=== PATIENT | female | born 1935 | race Caucasian/White ===

== ENCOUNTER 2017-07-28 11:50 | Inpatient (IN) ==
[2017-07-28] MEDS ORDERED: 0.9 % Sodium Chloride 1,000 ML IVC ONE (12:16)
[2017-07-28 12:55] LABS: Basophils # 0.1 K/mcL (0.0-0.2); Basophils % 0.7 %; Eosinophils # 0.1 K/mcL (0.0-0.6); Eosinophils % 1.1 %; Hematocrit 34.4 % (35.3-44.9); Hemoglobin 11.6 g/dL (11.5-15.4); Immature Granulocytes % 1.7 % (0-4); Lymphocytes # 1.1 K/mcL (0.6-4.6); Lymphocytes % 12.6 %; Mean Corpuscular HGB Conc 33.7 g/dL (31.6-35.5); Mean Corpuscular Hemoglobin 31.6 pg (28.0-33.3); Mean Corpuscular Volume 93.7 fL (83.0-100.0); Mean Platelet Volume 8.6 fL (9.4-12.4); Monocytes # 0.6 K/mcL (0.0-1.3); Monocytes % 7.1 %; Neutrophils # 6.9 K/mcL (1.6-8.9); Platelet Count 291 K/mcL (140-400); Red Blood Count 3.67 M/mcL (3.82-4.97); Segmented Neutrophils % 76.8 %
[2017-07-28 13:01] LABS: INR 1.2; Prothrombin Time 12.5 Seconds (9.4-12.1)
[2017-07-28 13:04] LABS: Activated Partial Thrombo Time 21.7 Seconds (26.0-36.0)
[2017-07-28 13:09] LABS: Alanine Aminotransferase 38 Units/L (0-55); Albumin 2.7 g/dL (3.5-5.0); Albumin/Globulin Ratio 0.6 (1.1-2.2); Alkaline Phosphatase 111 Units/L (38-126); Aspartate Amino Transferase 25 Units/L (5-34); BUN/Creatinine Ratio 14 (6-26); Bilirubin,Direct 0.3 mg/dL (0.0-0.5); Bilirubin,Indirect 0.4 mg/dL (0.0-1.2); Bilirubin,Total 0.7 mg/dL (0.2-1.2); Blood Urea Nitrogen 10 mg/dL (7-20); Calcium 8.9 mg/dL (8.6-10.8); Carbon Dioxide 26 mEq/L (19-29); Chloride 104 mEq/L (98-109); Globulin 4.4 g/dL (2.4-3.5); Glucose 161 mg/dL (70-99); Magnesium 1.9 mg/dL (1.6-2.6); Osmolality,Calculated 293 (280-300); Phosphorous 1.8 mg/dL (2.3-4.7); Potassium 3.1 mEq/L (3.5-4.5); Sodium 140 mEq/L (136-145); Total Protein 7.1 g/dL (6.0-8.3); eGFR For African Americans > 60 (> 60); eGFR For Non-African Americans > 60 (> 60)
--- NOTE | 2017-07-28 13:24 | Emergency Department Note ---
Disposition Clinical Impression: Community acquired pneumonia Disposition: Admitted As Inpatient Condition: Fair Time of Disposition: 14:34 SOB HPI - General Chief Complaint: ED Shortness of Breath/Dyspnea Stated Complaint: JUVENTINO Time Seen by Provider: 07/28/17 12:01 Source: patient Mode of arrival: ambulatory Limitations: no limitations Nursing Notes Reviewed: Yes Vital Signs Reviewed: Yes - History of Present Illness 81-year-old female presented to the ED with shortness of breath. Patient is very hard of hearing. Patient only has hypertension as her medical problems and takes medications for that. Since she is still having a little bit of substernal chest pain but says it does not radiate. As the pain is a pressure and is a 2 out of 10. She has not taken anything for the pain. It mainly hurts if she takes a big deep breath. She was seen 1 week ago by her primary care physician started on amoxicillin/clavulanate which has not helped. She was diagnosed with bronchitis at that time. Patient 7 hard time breathing. Says she is getting yellow sputum production. Patient states she has not had a fever. She does not complain of any other abdominal pain, pain with urination, headache, blurry vision, neck pain, back pain, changes in bowel movements, or tingling of the arms or legs or any generalized numbness. She is not having any nausea or vomiting. No other complaints at this time. - Related Data Home Medications Medication Instructions Recorded Confirmed Amoxicillin/Clavulanate [Augmentin] 1 tab PO BID 07/28/17 07/28/17 Atenolol [Tenormin] 50 mg PO DAILY 07/28/17 07/28/17 Lipoflavonoid 1 tab PO TIDWM 07/28/17 07/28/17 Lovastatin [Mevacor] 20 mg PO DAILY 07/28/17 07/28/17 amLODIPine [Norvasc] 2.5 mg PO TID 07/28/17 07/28/17 Allergies Allergy/AdvReac Type Severity Reaction Status Date / Time No Known Allergies Allergy Verified 07/28/17 11:58 Review of Systems: 10 point review of systems done and negative unless otherwise stated in history of present illness. All systems ED: reviewed and negative except as stated. Review of Systems: As Per HPI Past Medical History - Past Medical History Attestation: Yes The following information was validated with the patient. Medical history: Reports: hyperlipidemia, hypertension - Social History Smoking Status: Never smoker Smokeless Tobacco Status: No Alcohol use: Reports: none Drug use: Reports: none Physical Exam - General Limitations: no limitations General appearance: alert, in no apparent distress - Head Head exam: atraumatic, normocephalic, normal inspection - Eye Eye exam: Present: normal appearance, PERRL, EOMI - ENT ENT exam: normal exam, normal oropharynx, mucous membranes moist - Neck Neck exam: Present: normal inspection, full ROM, trachea midline - Chest Chest inspection: Present: normal inspection, symmetric chest wall rise - Respiratory Respiratory exam: Absent: respiratory distress, wheezes, stridor, accessory muscle use - Expanded Respiratory Exam Location: rhonchi: Left, Right, Lower - Cardiovascular Cardiovascular exam: Present: regular rate, normal rhythm, normal heart sounds - Abdominal Exam Abdominal exam: Present: soft, Non-Tender, normal bowel sounds. Absent: tenderness, distention, guarding, rebound, rigidity - Extremities Exam Extremities exam: Present: normal inspection, full ROM. Absent: tenderness, pedal edema - Expanded Lower Extremity Exam Neurovascular/Tendon exam: Present: normal capillary refill. Absent: pulse deficit, motor deficit, sensory deficit, tendon deficit - Back Exam Back exam: Present: normal inspection, full ROM. Absent: tenderness, CVA tenderness (R), CVA tenderness (L) - Neurological Exam Neurological exam: Present: alert, oriented X3 - Skin Skin exam: Present: warm, dry, intact, normal color Course Course Narrative: 81-year-old female presents to the shortness of breath she is tachycardic here we took her regular as service criteria and blood culture as well as lactate CBC , CMP, lipase, urinalysis. Will get chest x-ray EKG and troponin. Will not start antibiotics at this time with her chest x-ray and other labs to come back. Patient took if this plan. We will also give 1 L fluid. Vital Signs Temperature 97.9 F 07/28/17 11:52 Pulse Rate 113 07/28/17 11:52 Respiratory Rate 18 07/28/17 11:52 Blood Pressure 104/64 07/28/17 11:52 O2 Sat by Pulse Oximetry 97 07/28/17 11:52 Temperature 98.4 F 07/28/17 16:23 Pulse Rate 94 07/28/17 16:23 Respiratory Rate 18 12/09/17 16:27 Blood Pressure 136/70 07/28/17 16:23 O2 Sat by Pulse Oximetry 98 07/28/17 16:27 Oxygen Delivery Oxygen Delivery Room Air Shortness of Breath/Dyspnea - MDM Narrative Medical decision making narrative: 81-year-old female presented to the ED with cough and sputum production. She was seen by her primary care doctor earlier this week and placed on med for possible pneumonia. Says she has been taking irregularly and symptoms of infection got worse. We did get basic labs which all came back normal. EKG and troponin were normal. Chest x-ray did show possible left-sided lower pneumonia. Due to her symptoms and failing outpatient treatment with Augmentin we felt that admission for community acquired pneumonia was needed. The patient she agreed with this plan. Patient was admitted to the hospitalist service and started on azithromycin as well as Rocephin. Lactate and blood cultures were ordered. Spoke with Dr. Alberto the hospitalist who agreed to admit the patient to their service. Patient is admitted in stable condition at this time. Chest X-Ray 07/28/17 12:19 IMPRESSION: Patchy opacity medially at the left lung base, which could represent a focal infiltrate. However, neoplasm is not excluded and further evaluation with radiographic follow-up until resolution versus chest CT is recommended. D/ : / 07/28/2017 13:29:06 Christiano Mullins MD / taylor Interpreting Provider: Christiano Mullins MD - Medical Records Medical records reviewed: Yes I reviewed the patient's medical records. - Lab Data Lab results reviewed: Yes I reviewed the patient's lab results. Result diagrams: 07/28/17 12:38 07/28/17 12:38 Lab Results 07/28/17 07/28/17 07/28/17 Range/Units 12:38 12:38 12:38 WBC 9.0 (4.3-11.1) K/mcL RBC 3.67 L (3.82-4.97) M/mcL Hgb 11.6 (11.5-15.4) g/dL Hct 34.4 L (35.3-44.9) % MCV 93.7 (83.0-100.0) fL MCH 31.6 (28.0-33.3) pg MCHC 33.7 (31.6-35.5) g/dL RDW 12.0 (11.5-14.5) % Plt Count 291 (140-400) K/mcL MPV 8.6 L (9.4-12.4) fL Immature Gran % 1.7 (0-4) % Seg Neutrophils % 76.8 % Lymphocytes % 12.6 % Monocytes % 7.1 % Eosinophils % 1.1 % Basophils % 0.7 % Neutrophils # 6.9 (1.6-8.9) K/mcL Lymphocytes # 1.1 (0.6-4.6) K/mcL Monocytes # 0.6 (0.0-1.3) K/mcL Eosinophils # 0.1 (0.0-0.6) K/mcL Basophils # 0.1 (0.0-0.2) K/mcL PT 12.5 H (9.4-12.1) Seconds INR 1.2 APTT 21.7 L (26.0-36.0) Seconds Sodium 140 (136-145) mEq/L Potassium 3.1 L (3.5-4.5) mEq/L Chloride 104 (98-109) mEq/L Carbon Dioxide 26 (19-29) mEq/L BUN 10 (7-20) mg/dL Creatinine 0.73 (0.57-1.11) mg/dL Est GFR ( Amer) > 60 (> 60) Est GFR (Non-Af Amer) > 60 (> 60) BUN/Creatinine Ratio 14 (6-26) Glucose 161 H (70-99) mg/dL Calculated Osmolality 293 (280-300) Lactic Acid (0.5-2.2) mmol/L Calcium 8.9 (8.6-10.8) mg/dL Phosphorus 1.8 L (2.3-4.7) mg/dL Magnesium 1.9 (1.6-2.6) mg/dL Total Bilirubin 0.7 (0.2-1.2) mg/dL Direct Bilirubin 0.3 (0.0-0.5) mg/dL Indirect Bilirubin 0.4 (0.0-1.2) mg/dL AST 25 (5-34) Units/L ALT 38 (0-55) Units/L Alkaline Phosphatase 111 (38-126) Units/L Troponin I (0-0.03) ng/mL Serum Total Protein 7.1 (6.0-8.3) g/dL Albumin 2.7 L (3.5-5.0) g/dL Globulin 4.4 H (2.4-3.5) g/dL Albumin/Globulin Ratio 0.6 L (1.1-2.2) Urine Color (Yellow) Urine Clarity (Clear) Urine pH (5.0-8.0) pH Units Ur Specific [place] (1.010-1.025) Urine Protein (Neg-Trace) mg/dL Urine Glucose (UA) (Normal) mg/dL Urine Ketones (Negative) mg/dL Urine Blood (Negative) Urine Nitrite (Negative) Urine Bilirubin (Negative) Urine Urobilinogen (Normal) mg/dL Ur Leukocyte Esterase (Negative) Ur Culture Indicated? (NO) 07/28/17 07/28/17 07/28/17 Range/Units 12:38 12:38 13:51 WBC (4.3-11.1) K/mcL RBC (3.82-4.97) M/mcL Hgb (11.5-15.4) g/dL Hct (35.3-44.9) % MCV (83.0-100.0) fL MCH (28.0-33.3) pg MCHC (31.6-35.5) g/dL RDW (11.5-14.5) % Plt Count (140-400) K/mcL MPV (9.4-12.4) fL Immature Gran % (0-4) % Seg Neutrophils % % Lymphocytes % % Monocytes % % Eosinophils % % Basophils % % Neutrophils # (1.6-8.9) K/mcL Lymphocytes # (0.6-4.6) K/mcL Monocytes # (0.0-1.3) K/mcL Eosinophils # (0.0-0.6) K/mcL Basophils # (0.0-0.2) K/mcL PT (9.4-12.1) Seconds INR APTT (26.0-36.0) Seconds Sodium (136-145) mEq/L Potassium (3.5-4.5) mEq/L Chloride (98-109) mEq/L Carbon Dioxide (19-29) mEq/L BUN (7-20) mg/dL Creatinine (0.57-1.11) mg/dL Est GFR ( Amer) (> 60) Est GFR (Non-Af Amer) (> 60) BUN/Creatinine Ratio (6-26) Glucose (70-99) mg/dL Calculated Osmolality (280-300) Lactic Acid 1.5 (0.5-2.2) mmol/L Calcium (8.6-10.8) mg/dL Phosphorus (2.3-4.7) mg/dL Magnesium (1.6-2.6) mg/dL Total Bilirubin (0.2-1.2) mg/dL Direct Bilirubin (0.0-0.5) mg/dL Indirect Bilirubin (0.0-1.2) mg/dL AST (5-34) Units/L ALT (0-55) Units/L Alkaline Phosphatase (38-126) Units/L Troponin I 0.00 (0-0.03) ng/mL Serum Total Protein (6.0-8.3) g/dL Albumin (3.5-5.0) g/dL Globulin (2.4-3.5) g/dL Albumin/Globulin Ratio (1.1-2.2) Urine Color Yellow (Yellow) Urine Clarity Clear (Clear) Urine pH 6.5 (5.0-8.0) pH Units Ur Specific [place] 1.016 (1.010-1.025) Urine Protein Negative (Neg-Trace) mg/dL Urine Glucose (UA) Normal (Normal) mg/dL Urine Ketones 15 H (Negative) mg/dL Urine Blood Negative (Negative) Urine Nitrite Negative (Negative) Urine Bilirubin Negative (Negative) Urine Urobilinogen Normal (Normal) mg/dL Ur Leukocyte Esterase Negative (Negative) Ur Culture Indicated? NO (NO) - Radiology Data Radiology results reviewed: Yes I reviewed the patient's radiology results. - EKG Data EKG attestation: Yes I reviewed and interpreted this EKG. EKG results narrative: EKG done 1157 review myself and the attending shows sinus tachycardia at a rate of 117, QRS 84, QTC 394 with a normal axis. No acute ST changes, no acute T- wave or maladies, no signs of any heart strain or hypertrophy, no signs of heart block, no signs of WPW/Brugada syndrome. This is an unchanged EKG when compared with the one done 11/28/14. Attestation Statement - Attestation Attestation: I, Maldonado Renteria, examined this patient and my medical decision-making was reviewed with the REORDERING CLERK/PA/Advanced Practice Nurse/Resident Physician. I agree with the documented findings, disposition and treatment plan as described except to the extent set forth below. 81-year-old female presents to the emergency department with concerns of difficulty in breathing and cough. Patient states her cough is productive of yellow sputum. She states she was evaluated by her primary care provider who prescribed her Augmentin for treatment of a possible pneumonia. Patient states she has become increasingly weak and fatigued. Chest x-ray shows acute infiltrate. She was started on community acquired antibiotics and admitted to the hospital for continuation of her care. She was given IV fluids for her tachycardia.
[2017-07-28] MEDS ORDERED: cefTRIAXone 1,000 MG in Water for inj. (sterile) 10 ML IVP ONE (13:46)
[2017-07-28] MEDS ORDERED: Azithromycin 500 MG in D5% in Water 250 ML IVPB ONE (13:46)
[2017-07-28 13:57] LABS: Bilirubin,Urine Negative (Negative); Blood,Urine Negative (Negative); Clarity,Urine Clear (Clear); Color,Urine Yellow (Yellow); Glucose,Urine (UA) Normal (Normal); Ketones,Urine 15 mg/dL (Negative); Leukocyte Esterase,Urine Negative (Negative); Nitrite,Urine Negative (Negative); PH,Urine 6.5 pH Units (5.0-8.0); Protein,Urine Negative (Neg-Trace); Specific Gravity,Urine 1.016 (1.010-1.025); Urobilinogen,Urine Normal (Normal)
[2017-07-28] MEDS ORDERED: Naloxone 0.4 MG/ML INJ IVP PRN (14:27)
[2017-07-28] MEDS ORDERED: Acetaminophen 325 MG TABLET PO PRN (14:27)
[2017-07-28] MEDS ORDERED: Ondansetron 4 MG/2 ML VIAL IVP PRN (14:27)
--- NOTE | 2017-07-28 14:46 | Internal Med History&Physical ---
Date of Encounter: 07/28/17 Time of Encounter: 14:30 Assessment and Plan (1) Community acquired pneumonia Current visit: Yes Status: Acute The patient will be admitted and be started on IV ceftriaxone and Zithromax. She has already received a dose of each in the emergency department. I will follow-up on the blood cultures I have ordered sputum culture as well as urine strep and Legionella. We will check her for fluids well. We will continue with nebulizer treatment and oxygenas needed. She is currently satting well on room air. Qualifiers: Laterality: left Lung location: unspecified part of lung Qualified Code(s ): J18.9 - Pneumonia, unspecified organism (2) Hypertension Current visit: Yes Status: Acute The patient's blood pressures on the lower side I will be holding her atenolol and Norvasc today. We will resume those as the blood pressure tolerates tomorrow. She is on IV fluids. Qualifiers: Hypertension type: essential hypertension Qualified Code(s): I10 - Essential (primary) hypertension (3) Hyperlipidemia Current visit: Yes Status: Acute Continue with her statin Qualifiers: Hyperlipidemia type: pure hypercholesterolemia Qualified Code(s): E78.00 - Pure hypercholesterolemia, unspecified; E78.0 - Pure hypercholesterolemia (4) DVT prophylaxis Current visit: Yes Status: Acute Heparin subcutaneous Internal Medicine - H&P: HPI Chief complaint: Shortness of breath History of present illness: Ms. Beach is a 81 year old female who has a past medical history of hypertension hyperlipidemia who presents to us with shortness of breath is has been going on for a week or so. Apparently the patient saw her primary care physician and was put on oral antibiotics. She was prescribed Augmentin at the time however she continued to be short of breath. She has had subjective fever but never really measured a temperature. She has had chills and sweats. Denies nausea vomiting. She has had some mild chest pain with no radiation. She has had a cough that was productive of yellowish sputum. She denies any headache. blurred vision, nausea, vomiting, abdominal pain, urinary or neurological symptoms. When she presented to the emergency department she was noted to have a blood pressure that was in the low 100s systolically. She has received IV fluid prior to me admitting her. She underwent workup that showed that she had infiltrates on her left side of her lungs. Her laboratory workup was remarkable for only a low potassium of 3.1 her electrolytes and kidney function was normal. She had white count was only 9. Her urinalysis was unremarkable. She had an EKG which showed no acute findings of ST or T-wave abnormalities. The patient is being admitted under the hospitalist service for failed outpatient treatment of community acquired pneumonia. Past Med Surg Social Fam HX - Past Medical History Medical history: hyperlipidemia, hypertension - Social History Smoking Status: Never smoker Smokeless Tobacco Status: No Alcohol use: none Drug use: none Internal Medicine - H&P: Meds Amoxicillin/Clavulanate [Augmentin] 1 tab PO BID 07/28/17 [History] Atenolol [Tenormin] 50 mg PO DAILY 07/28/17 [History] Lipoflavonoid 1 tab PO DAILY 07/28/17 [History] Lovastatin [Mevacor] 20 mg PO DAILY 07/28/17 [History] amLODIPine [Norvasc] 2.5 mg PO DAILY 07/28/17 [History] 3 Allergy/AdvReac Type Severity Reaction Status Date / Time No Known Allergies Allergy Verified 07/28/17 11:58 All Systems PM: A 10-system review of systems was performed and is negative for pertinent findings except as documented above in the HPI. Review of systems: All systems reviewed are negative except for what is mentioned above - Constitutional Vitals: Temp Pulse Resp BP Pulse Ox 97.9 F 113 18 104/64 97 07/28/17 11:52 07/28/17 11:52 07/28/17 11:52 07/28/17 11:52 07/28/17 11:52 Exam: GEN: NAD HEENT: AT, NC, No cyanosis, oral mucosa is moist, No JVD Lymphatics: No lymphadenoapthy Eyes: Extrocular muscles intact, anicteric CVS:RRR. S1, S2, No m/r/g RESP: diminished. Coarse on the left base. No wheezes ABD: Soft, NT, ND, +BS EXT: No edema, No rashes, 2+ DP NEURO: Nonfocal, CN II-XII intact, No focal motor or sensory deficits Psych: Cooperative, Not anxious or depressed Internal Med - H&P Results - Labs CBC & Chem 7: 07/28/17 12:38 07/28/17 12:38
[2017-07-28] MEDS: 0.9 % Sodium Chloride 1,000 ML IVC SCH (15:30)
[2017-07-28] MEDS: Ipratropium/Albuterol Neb 3 ML IH SCH ×2 (16:26→22:41)
[2017-07-28] MEDS: *HR* Heparin 5,000 UNIT/ML VIAL SQ SCH (16:37)
[2017-07-28] MEDS: LIPOFLAVONOID PO SCH (16:37)
[2017-07-28 18:22] LABS: 2009 H1N1 PCR NOT DETECTED (Not Detect); Influenza A PCR Negative (Negative); Influenza B PCR Negative (Negative)
[2017-07-29] MEDS ORDERED: Melatonin 3 MG TABLET PO ONE (01:06)
[2017-07-29] MEDS: *HR* Heparin 5,000 UNIT/ML VIAL SQ SCH ×4 (01:14→23:59)
[2017-07-29] MEDS: 0.9 % Sodium Chloride 1,000 ML IVC SCH (02:00)
[2017-07-29] MEDS: Ipratropium/Albuterol Neb 3 ML IH SCH ×4 (04:02→22:36)
[2017-07-29 06:40] LABS: BUN/Creatinine Ratio 9 (6-26); Blood Urea Nitrogen 5 mg/dL (7-20); Calcium 7.8 mg/dL (8.6-10.8); Carbon Dioxide 24 mEq/L (19-29); Chloride 110 mEq/L (98-109); Glucose 113 mg/dL (70-99); Magnesium 1.5 mg/dL (1.6-2.6); Osmolality,Calculated 290 (280-300); Sodium 141 mEq/L (136-145); eGFR For African Americans > 60 (> 60); eGFR For Non-African Americans > 60 (> 60)
[2017-07-29 06:59] LABS: Basophils % 0.5 %; Eosinophils # 0.1 K/mcL (0.0-0.6); Eosinophils % 1.8 %; Hematocrit 28.2 % (35.3-44.9); Immature Granulocytes % 1.9 % (0-4); Lymphocytes # 1.7 K/mcL (0.6-4.6); Lymphocytes % 22.2 %; Mean Corpuscular HGB Conc 34.8 g/dL (31.6-35.5); Mean Corpuscular Hemoglobin 32.2 pg (28.0-33.3); Mean Corpuscular Volume 92.8 fL (83.0-100.0); Mean Platelet Volume 8.7 fL (9.4-12.4); Monocytes # 0.6 K/mcL (0.0-1.3); Monocytes % 7.9 %; Neutrophils # 5.1 K/mcL (1.6-8.9); Platelet Count 252 K/mcL (140-400); Red Blood Count 3.04 M/mcL (3.82-4.97); Red Cell Distribution Width 12.1 % (11.5-14.5); Segmented Neutrophils % 65.7 %
[2017-07-29 07:00] LABS: Hemoglobin 9.8 g/dL (11.5-15.4)
[2017-07-29] MEDS ORDERED: GuaiFENesin/Codeine Oral Soln 5 ML UDC PO PRN (07:26)
[2017-07-29] MEDS: LIPOFLAVONOID PO SCH ×3 (08:13→17:32)
[2017-07-29] MEDS ORDERED: amLODIPine 5 MG TABLET PO SCH (09:00)
--- NOTE | 2017-07-29 10:19 | Internal Med Progress Note ---
Date of Encounter: 07/29/17 Time of Encounter: 07:15 - Assessment and plan (1) Community acquired pneumonia Current Visit: Yes Status: Acute Assessment and plan: The patient will be maintained on IV ceftriaxone and Zithromax. Her cultures have remained negative. Urine strep and Legionella been negative. She will probably benefit from one more day of IV antibiotics and possibly discharge in the morning. Will add symptomatic treatment to her coughing Qualifiers: Laterality: left Lung location: unspecified part of lung Qualified Code(s ): J18.9 - Pneumonia, unspecified organism (2) Hypertension Current Visit: Yes Status: Acute Assessment and plan: The patient blood pressure seems to be stable at this time. I will stop her IV fluid. Depending on her blood pressurethen may have to resume her blood pressure medication as those were held due to hypotension. Qualifiers: Hypertension type: essential hypertension Qualified Code(s): I10 - Essential (primary) hypertension (3) Hyperlipidemia Current Visit: Yes Status: Acute Assessment and plan: Continue statin Qualifiers: Hyperlipidemia type: pure hypercholesterolemia Qualified Code(s): E78.00 - Pure hypercholesterolemia, unspecified; E78.0 - Pure hypercholesterolemia (4) Hypokalemia Current Visit: Yes Status: Acute Assessment and plan: We will give 40 IV and 40 oral potassium and will check labs in the morning (5) DVT prophylaxis Current Visit: Yes Status: Acute Assessment and plan: Heparin subcutaneous - Subjective Interval history: No acute events. The patient continues to be on IV antibiotics for community acquired pneumonia. She says her cough still an issue. She has not really seem so much improvement yet. She has been afebrile. - Constitutional Vitals: Temp Pulse Resp BP Pulse Ox 98.5 F 97 15 145/70 94 07/29/17 09:52 07/29/17 09:52 07/29/17 09:52 07/29/17 09:52 07/29/17 09:52 Exam: GEN: NAD CVS:RRR. S1, S2, No m/r/g RESP: diminished. Coarse on the left base. No wheezes ABD: Soft, NT, ND, +BS EXT: No edema, No rashes, 2+ DP NEURO: Nonfocal, CN II-XII intact, No focal motor or sensory deficits Internal Medicine: Result - Labs CBC & Chem 7: 07/29/17 06:16 07/29/17 06:16 Labs: Short CBC 07/29/17 Range/Units 06:16 WBC 7.7 (4.3-11.1) K/mcL Hgb 9.8 L D (11.5-15.4) g/dL Hct 28.2 L (35.3-44.9) % Plt Count 252 (140-400) K/mcL Neutrophils # 5.1 (1.6-8.9) K/mcL BMP 07/29/17 06:16 Sodium 141 Potassium 3.0 L Chloride 110 H Carbon Dioxide 24 BUN 5 L Creatinine 0.57 Glucose 113 H Calcium 7.8 L - ABG Interpretation ABG results: PT/INR, D-dimer PT 12.5 Seconds (9.4-12.1) H 07/28/17 12:38 Consult Discharge Plan - Plan Referrals: Adriel Skinner DO [Primary Care Provider] -
[2017-07-29] MEDS ORDERED: Azithromycin 500 MG in D5% in Water 250 ML IVPB SCH (12:00)
[2017-07-29] MEDS: cefTRIAXone 1,000 MG in Water for inj. (sterile) 10 ML IVP SCH (12:20)
[2017-07-29] MEDS ORDERED: 0.9 % Sodium Chloride 250 ML ONE (15:11)
[2017-07-29] MEDS ORDERED: 0.9 % Sodium Chloride 500 ML ONE (20:21)
[2017-07-30 03:17] LABS: Basophils # 0.1 K/mcL (0.0-0.2); Basophils % 0.7 %; Eosinophils # 0.2 K/mcL (0.0-0.6); Eosinophils % 2.4 %; Hematocrit 31.8 % (35.3-44.9); Hemoglobin 10.5 g/dL (11.5-15.4); Immature Granulocytes % 2.2 % (0-4); Lymphocytes % 23.9 %; Mean Corpuscular Hemoglobin 31.2 pg (28.0-33.3); Mean Corpuscular Volume 94.4 fL (83.0-100.0); Mean Platelet Volume 8.9 fL (9.4-12.4); Monocytes # 0.7 K/mcL (0.0-1.3); Neutrophils # 5.2 K/mcL (1.6-8.9); Platelet Count 304 K/mcL (140-400); Red Blood Count 3.37 M/mcL (3.82-4.97); Red Cell Distribution Width 12.4 % (11.5-14.5); Segmented Neutrophils % 62.8 %
[2017-07-30 03:32] LABS: BUN/Creatinine Ratio 13 (6-26); Blood Urea Nitrogen 9 mg/dL (7-20); Calcium 8.7 mg/dL (8.6-10.8); Carbon Dioxide 23 mEq/L (19-29); Chloride 109 mEq/L (98-109); Glucose 132 mg/dL (70-99); Osmolality,Calculated 295 (280-300); Sodium 142 mEq/L (136-145); eGFR For African Americans > 60 (> 60); eGFR For Non-African Americans > 60 (> 60)
[2017-07-30 03:36] LABS: Potassium 4.1 mEq/L (3.5-4.5)
[2017-07-30] MEDS: Ipratropium/Albuterol Neb 3 ML IH SCH ×2 (05:07→10:10)
[2017-07-30 07:47] VITALS: BP 130/69
[2017-07-30] MEDS: LIPOFLAVONOID PO SCH (09:01)
[2017-07-30] MEDS: *HR* Heparin 5,000 UNIT/ML VIAL SQ SCH (09:01)
--- NOTE | 2017-07-30 09:26 | Discharge Summary ---
Date of Encounter: 07/30/17 Time of Encounter: 09:25 - Discharge Diagnosis (1) Community acquired pneumonia Priority: Primary Status: Acute Qualifiers: Laterality: left Lung location: unspecified part of lung Qualified Code(s ): J18.9 - Pneumonia, unspecified organism (2) Hypertension Priority: Secondary Status: Acute Qualifiers: Hypertension type: essential hypertension Qualified Code(s): I10 - Essential (primary) hypertension (3) Hyperlipidemia Priority: Secondary Status: Acute Qualifiers: Hyperlipidemia type: pure hypercholesterolemia Qualified Code(s): E78.00 - Pure hypercholesterolemia, unspecified; E78.0 - Pure hypercholesterolemia (4) Hypokalemia Priority: Primary Status: Acute - Discharge Medications Prescriptions: GuaiFENesin/Codeine [ROBITUSSIN w/CODEINE] 5 ml PO Q6HR PRN #10 udc PRN Reason: Cough levoFLOXacin [Levaquin] 500 mg PO DAILY #5 tablet Home Medications: Amoxicillin/Clavulanate [Augmentin] 1 tab PO BID 07/28/17 [History] Atenolol [Tenormin] 50 mg PO DAILY 07/28/17 [History] Lipoflavonoid 1 tab PO TIDWM 07/28/17 [History] Lovastatin [Mevacor] 20 mg PO DAILY 07/28/17 [History] amLODIPine [Norvasc] 2.5 mg PO TID 07/28/17 [History] GuaiFENesin/Codeine [ROBITUSSIN w/CODEINE] 5 ml PO Q6HR PRN #10 udc 07/30/17 [Rx ] levoFLOXacin [Levaquin] 500 mg PO DAILY #5 tablet 07/30/17 [Rx] Allergies/Adverse Reactions: 3 Allergy/AdvReac Type Severity Reaction Status Date / Time No Known Allergies Allergy Verified 07/28/17 11:58 Date of admission: 07/28/17 14:30 Primary care physician: Adriel Skinner, Consults: 07/28/17 15:43 Consult to Nutrition [CONS] Routine Comment: Consulting Provider: NUTRITION Reason for Dietary Consult: MST Score 07/30/17 09:22 Consult to Physical Therapy [CONS] Routine Comment: Evaluate, develop and implement POC Reason for Consult: PT eval - Patient Status Disposition: Home, Self-Care Overall status at discharge: patient is back to baseline - Discharge Instructions Instructions: Pneumonia (DC) Follow Up With: Adriel Skinner DO [Primary Care Provider] - 08/06/17 1:15 pm (Please follow up as schedule..) - Diet and Activity Activity: resume usual activities as tolerated Diet: regular diet Hospital course: Ms. Beach is a 81 year old female who has a past medical history of hypertension hyperlipidemia who presented to us with shortness of breath that has been going on for a week or so. Apparently the patient saw her primary care physician and was put on oral antibiotics. She was prescribed Augmentin at the time however she continued to be short of breath. She has had subjective fever but never really measured a temperature. She has had chills and sweats. When she presented to the emergency department she was noted to have a blood pressure that was in the low 100s systolically. She has received IV fluid prior to me admitting her. She underwent workup that showed that she had infiltrates on her left side of her lungs. Her laboratory workup was remarkable for only a low potassium of 3.1 her electrolytes and kidney function was normal. She had white count was only 9. Her urinalysis was unremarkable. She had an EKG which showed no acute findings of ST or T-wave abnormalities. The patient was admitted under the hospitalist service for failed outpatient treatment of community acquired pneumonia. She was maintained on IV Levaquin. She did well over the next couple of days. We ended up discharging the patient after hydration and IV antibiotics. She was discharged on oral Levaquin. She will need follow-up with her primary care physician. - Time Spent with Patient Total time spent providing and/or coordinating discharge services: - Constitutional Vitals: Temp Pulse Resp BP Pulse Ox 98.5 F 95 16 130/69 96 07/30/17 07:44 07/30/17 07:44 07/30/17 07:44 07/30/17 07:44 07/30/17 07:44 Exam: GEN: NAD CVS: RRR. S1, S2, No m/r/g RESP: CTAB ABD: Soft, NT, ND, +BS EXT: No edema. 2+ DP, No rashes NEURO: Nonfocal
[2017-07-30] MEDS ORDERED: LIPOFLAVONOID PO SCH (12:00)
[2017-07-30] MEDS ORDERED: Azithromycin 250 MG TABLET PO SCH (12:00)
[2017-07-30] MEDS: cefTRIAXone 1,000 MG in Water for inj. (sterile) 10 ML IVP SCH (12:36)
--- NOTE | 2017-07-30 14:46 | Electrocardiograph Report ---
[place] [id number] Test Date: 2017-07-28 Pat Name: Mariaelena Beach Department: 102 Room: [facility] Gender: F [employer] Manager: : [id number] Requested By: Edward Arcos Order Number: [id number] Reading MD: Maldonado Goldstein Measurements Intervals Excel Rate: 117 P: [place]: 0 QRS: 11 QRSD: 84 T: 47 QT: 325 QTc: 394 Interpretive Statements SINUS TACHYCARDIA ABNORMAL RHYTHM ECG Electronically Signed On 07-30-2017 14:44:29 EST by Maldonado Goldstein
== END 2017-07-30 13:54 | disposition home or self-care (01) | DRG 195 ==
LOC: 2ANU 11:50 → EMEROO 11:50 → SUATTDRO 14:30 → 2ANU 15:16
PROVIDERS: ADMIT Hospitalist; ATTEND Internal Medicine

== ENCOUNTER 2018-04-16 16:33 | Observation (INO) ==
[2018-04-16 17:08] LABS: Hematocrit 37.7 % (35.3-44.9)
--- NOTE | 2018-04-16 17:31 | Emergency Department Note ---
Disposition Clinical Impression: Syncope Qualifiers: Syncope type: unspecified Qualified Code(s): R55 - Syncope and collapse Disposition: Admitted As Inpatient Condition: Good Instructions: Syncope (ED) Referrals: Jim Barcenas MD [Primary Care Provider] - Forms: ED Satisfaction Letter Time of Disposition: 17:46 General Adult HPI - General Chief complaint: ED Altered Mental Status Stated complaint: Syncope Time Seen by Provider: 04/16/18 16:43 Source: patient, EMS Mode of arrival: EMS Limitations: no limitations Nursing Notes Reviewed: Yes Vital Signs Reviewed: Yes - History of Present Illness HPI Narrative: Patient is an 82-year-old female that presents emergency department after a syncopal episode. Patient states that this morning after taking her tramadol started feeling funny and kind of dizzy. Patient told her mercantile agent that she would like to go on a walk so they went to the park. Seed Laboratory Assistant states that she got hot and then felt lightheaded and dizzy and then passed out. Caregiver says that she did not fall she caught her prior to falling or having any injury. States that she then got up and sat down on the bench and she got lightheaded again and leaned against the caregiver. Patient's caregiver then called EMS and the patient was transported to the ER. Family denies any history of syncopal episodes in the past. Patient denies any injuries. Patient states that she is feeling better she is back at her baseline area and family in the room agrees that the patient is acting normally and like her usual self. Pain Scale: 0 - Related Data Home Medications Medication Instructions Recorded Confirmed Amoxicillin/Clavulanate [Augmentin] 1 tab PO BID 07/28/17 07/28/17 Atenolol [Tenormin] 50 mg PO DAILY 07/28/17 07/28/17 Lipoflavonoid 1 tab PO TIDWM 07/28/17 07/28/17 Lovastatin [Mevacor] 20 mg PO DAILY 07/28/17 07/28/17 amLODIPine [Norvasc] 2.5 mg PO TID 07/28/17 07/28/17 Atenolol 12/28/17 Previous Rx's Medication Instructions Recorded GuaiFENesin/Codeine [ROBITUSSIN 5 ml PO Q6HR PRN #10 udc 07/30/17 w/CODEINE] levoFLOXacin [Levaquin] 500 mg PO DAILY #5 tablet 07/30/17 Albuterol Sulfate [Albuterol 2 puff IH QID #1 inhaler 12/28/17 Inhaler] Benzonatate [Tessalon] 200 mg PO TID PRN #20 capsule 12/28/17 Doxycycline 100 mg PO BID #14 capsule 12/28/17 predniSONE [PredniSONE] 20 mg PO BID #10 tablet 12/28/17 Allergies Allergy/AdvReac Type Severity Reaction Status Date / Time No Known Allergies Allergy Verified 07/28/17 11:58 All systems ED: reviewed and negative except as stated. Cardiovascular: Denies: chest pain Respiratory: Denies: dyspnea Gastrointestinal: Denies: abdominal pain, nausea, vomiting Past Medical History - Past Medical History Medical history: Reports: asthma, hyperlipidemia, hypertension Psychiatric history: Reports: no psych history - Social History Smoking Status: Current every day smoker Smokeless Tobacco Status: No Alcohol use: Reports: none Drug use: Reports: none Physical Exam - General Limitations: no limitations General appearance: alert, in no apparent distress - Head Head exam: atraumatic, normocephalic - Eye Eye exam: Present: normal appearance, EOMI - Neck Neck exam: Present: normal inspection, full ROM, trachea midline - Respiratory Respiratory exam: Present: normal lung sounds bilaterally. Absent: respiratory distress, wheezes - Cardiovascular Cardiovascular exam: Present: normal rhythm, bradycardia, normal heart sounds, + S1, +S2 - Abdominal Exam Abdominal exam: Present: soft, Non-Tender, normal bowel sounds - Neurological Exam Neurological exam: Present: alert, oriented X3 - Expanded Neurological Exam Patient oriented to: Present: person, place, time Speech: Present: fluid speech Cranial nerves: EOM function (II, III, IV, ): Normal, facial sensation (V): Normal, facial palsy (VII): Normal, gag reflex (IX): Normal, spinal accessory function (XI): Normal, tongue deviation (XII): Normal Cerebellar function: finger to nose: Normal, heel to galaviz: Normal Motor strength - LUE: 5/5 Motor strength - RUE: 5/5 Motor strength - LLE: 5/5 Motor strength - RLE: 5/5 Upper motor neuron exam: pronator drift: Absent bilaterally Sensory exam upper extremity: light touch: Normal Sensory exam lower extremity: light touch: Normal Coma Scale Eye Opening: Spontaneous Coma Scale Motor Response: Obeys Commands Coma Scale Verbal Response: Oriented Coma Scale Total: 15 - Psychiatric Psychiatric exam: Present: normal affect, normal mood - Skin Skin exam: Present: warm, dry, intact Course Vital Signs Temperature 97.6 F 04/16/18 16:36 Pulse Rate 55 04/16/18 16:36 Respiratory Rate 20 04/16/18 16:36 Blood Pressure 163/77 04/16/18 16:36 O2 Sat by Pulse Oximetry 99 04/16/18 16:36 Temperature 97.6 F 04/16/18 16:36 Pulse Rate 55 04/16/18 16:36 Respiratory Rate 20 04/16/18 16:36 Blood Pressure 163/77 04/16/18 16:36 O2 Sat by Pulse Oximetry 99 04/16/18 16:36 Oxygen Delivery Oxygen Delivery Room Air Medical Decision Making - MDM Narrative Medical decision making narrative: Due the patient is not emergency department with a syncopal episode we will check basic laboratory testing including a hemoglobin, BMP, glucose and EKG. Patient's glucose is 155. The remainder of her laboratory testing was unremarkable. Patient was not anemic or did not have any left-sided abnormalities. EKG was nonischemic. Patient's EKG was mildly bradycardic at 58. Due to the patient having an unexplained syncopal episode and the patient being 82 years old and feel that it is important that the patient be admitted to the hospital for further evaluation and management. - Lab Data Lab results reviewed: Yes I reviewed the patient's lab results. Result diagrams: 04/16/18 16:42 04/16/18 16:42 Lab Results 04/16/18 04/16/18 Range/Units 16:42 16:42 Hgb 13.0 (11.5-15.4) g/dL Hct 37.7 (35.3-44.9) % Sodium 139 (136-145) mEq/L Potassium 3.7 (3.5-5.1) mEq/L Chloride 104 (98-107) mEq/L Carbon Dioxide 28 (23-29) mEq/L BUN 15 (8-23) mg/dL Creatinine 0.70 (0.60-1.20) mg/dL Est GFR ( Amer) > 60 (> 60) Est GFR (Non-Af Amer) > 60 (> 60) BUN/Creatinine Ratio 21 (6-26) Glucose 155 H (70-105) mg/dL Calculated Osmolality 292 (280-300) Calcium 9.4 (8.6-10.3) mg/dL
[2018-04-16 17:32] LABS: BUN/Creatinine Ratio 21 (6-26); Blood Urea Nitrogen 15 mg/dL (8-23); Calcium 9.4 mg/dL (8.6-10.3); Carbon Dioxide 28 mEq/L (23-29); Chloride 104 mEq/L (98-107); Glucose 155 mg/dL (70-105); Osmolality,Calculated 292 (280-300); Potassium 3.7 mEq/L (3.5-5.1); Sodium 139 mEq/L (136-145); eGFR For Non-African Americans > 60 (> 60)
--- NOTE | 2018-04-16 17:52 | Emergency Department Note ---
Disposition Clinical Impression: Syncope Qualifiers: Syncope type: unspecified Qualified Code(s): R55 - Syncope and collapse Disposition: Admitted As Inpatient Condition: Good Instructions: Syncope (ED) Forms: ED Satisfaction Letter General Adult HPI - General Chief complaint: ED Altered Mental Status Stated complaint: Syncope Time Seen by Provider: 04/16/18 16:43 Source: patient, EMS Mode of arrival: EMS Limitations: no limitations - History of Present Illness Pain Scale: 0 - Related Data Home Medications Medication Instructions Recorded Confirmed Amoxicillin/Clavulanate [Augmentin] 1 tab PO BID 07/28/17 07/28/17 Atenolol [Tenormin] 50 mg PO DAILY 07/28/17 07/28/17 Lipoflavonoid 1 tab PO TIDWM 07/28/17 07/28/17 Lovastatin [Mevacor] 20 mg PO DAILY 07/28/17 07/28/17 amLODIPine [Norvasc] 2.5 mg PO TID 07/28/17 07/28/17 Atenolol 12/28/17 Previous Rx's Medication Instructions Recorded GuaiFENesin/Codeine [ROBITUSSIN 5 ml PO Q6HR PRN #10 udc 07/30/17 w/CODEINE] levoFLOXacin [Levaquin] 500 mg PO DAILY #5 tablet 07/30/17 Albuterol Sulfate [Albuterol 2 puff IH QID #1 inhaler 12/28/17 Inhaler] Benzonatate [Tessalon] 200 mg PO TID PRN #20 capsule 12/28/17 Doxycycline 100 mg PO BID #14 capsule 12/28/17 predniSONE [PredniSONE] 20 mg PO BID #10 tablet 12/28/17 Allergies Allergy/AdvReac Type Severity Reaction Status Date / Time No Known Allergies Allergy Verified 07/28/17 11:58 Past Medical History - Past Medical History Medical history: Reports: asthma, hyperlipidemia, hypertension Psychiatric history: Reports: no psych history - Social History Smoking Status: Current every day smoker Smokeless Tobacco Status: No Alcohol use: Reports: none Drug use: Reports: none Physical Exam - General Limitations: no limitations General appearance: alert, in no apparent distress Course Vital Signs Temperature 97.6 F 04/16/18 16:36 Pulse Rate 55 04/16/18 16:36 Respiratory Rate 20 04/16/18 16:36 Blood Pressure 163/77 04/16/18 16:36 O2 Sat by Pulse Oximetry 99 04/16/18 16:36 Temperature 97.6 F 04/16/18 16:36 Pulse Rate 55 04/16/18 16:36 Respiratory Rate 20 04/16/18 16:36 Blood Pressure 163/77 04/16/18 16:36 O2 Sat by Pulse Oximetry 99 04/16/18 16:36 Oxygen Delivery Oxygen Delivery Room Air Medical Decision Making - Lab Data Result diagrams: 04/16/18 16:42 04/16/18 16:42 Lab Results 04/16/18 04/16/18 Range/Units 16:42 16:42 Hgb 13.0 (11.5-15.4) g/dL Hct 37.7 (35.3-44.9) % Sodium 139 (136-145) mEq/L Potassium 3.7 (3.5-5.1) mEq/L Chloride 104 (98-107) mEq/L Carbon Dioxide 28 (23-29) mEq/L BUN 15 (8-23) mg/dL Creatinine 0.70 (0.60-1.20) mg/dL Est GFR ( Amer) > 60 (> 60) Est GFR (Non-Af Amer) > 60 (> 60) BUN/Creatinine Ratio 21 (6-26) Glucose 155 H (70-105) mg/dL Calculated Osmolality 292 (280-300) Calcium 9.4 (8.6-10.3) mg/dL Attestation Statement - Attestation Attestation: I examined this patient and my medical decision-making was reviewed with the Resident Physician. I agree with the documented findings, disposition and treatment plan as described except to the extent set forth below. 82-year-old patient with a syncopal episode. No ischemia or conduction abnormalities on her EKG. Initial lab work is normal. She is return to baseline. No neurologic symptoms. Has been in normal sinus rhythm on the monitor throughout her ER stay. Will be admitted for continued cardiac monitoring due to her age.
[2018-04-16] MEDS ORDERED: Naloxone 0.4 MG/ML INJ IVP PRN (18:49)
[2018-04-16] MEDS ORDERED: traMADol 50 MG TABLET PO PRN (23:09)
--- NOTE | 2018-04-16 23:57 | Internal Med History&Physical ---
Date of Encounter: 04/17/18 Time of Encounter: 22:15 Internal Medicine - H&P: HPI Chief complaint: Syncope, weakness Admitted From: Emergency Dept Plans for Post Hospital Care: Home History of present illness: Ms. Beach is a 82 year old female Patient was sitting out in the park with her Visiting [employer] ([employer]) when she apparently started to pass out. She started to lean forward but was caught by her home health nurse. She states that she thinks that she has been feeling weak for the last few days. She did not hit her head. She does live alone however. After getting her situated, an ambulance was called to take her to the hospital. She denies chest pain, abdominal pain, diarrhea, constipation, cough, nausea and vomiting. She denies preceding vision changes. In the ER her lab work was unremarkable and EKG only showed mildy bradycardic heart rate of 58. She was admitted for further workup and management of her sycopal episode and weakness. Upon my assessment patient states that she is feeling better and has no complaints. she is resting comfortably in the bed. Past Med Surg Social Fam HX - Past Medical History Medical history: asthma, hyperlipidemia, hypertension Additional medical history: deaf L ear Psychiatric history: no psych history - Social History Smoking Status: Current every day smoker Smokeless Tobacco Status: No Alcohol use: none Drug use: none - Family History Father Name: mayito de la vega Living Status: Age at : 87 Cause of : PNE Internal Medicine - H&P: Meds Acetaminophen [Tylenol 8 Hour] 650 mg PO Q8H PRN 04/16/18 [History] Albuterol Sulfate [Ventolin Hfa] 2 puff IH Q6H PRN 04/16/18 [History] Amlodipine Besylate [Amlodipine Besylate] 10 mg PO DAILY 04/16/18 [History] Ascorbate Calcium [Vitamin C] 500 mg PO DAILY 04/16/18 [History] Atenolol [Tenormin] 50 mg PO DAILY 04/16/18 [History] Biotin 1 mg PO DAILY 04/16/18 [History] Cholecalciferol (D-3) [Vitamin D] 1,000 unit PO DAILY 04/16/18 [History] Lovastatin [Mevacor] 20 mg PO HS 04/16/18 [History] Lutein 6 mg PO DAILY 04/16/18 [History] Pyridoxine HCl [Vitamin B-6] 100 mg PO DAILY 04/16/18 [History] Tramadol HCl [Ultram] 50 mg PO TID PRN 04/16/18 [History] 3 Allergy/AdvReac Type Severity Reaction Status Date / Time No Known Allergies Allergy Verified 04/16/18 18:49 All Systems PM: A 10-system review of systems was performed and is negative for pertinent findings except as documented above in the HPI. - Constitutional Vitals: Temp Pulse Resp BP Pulse Ox 98.3 F 64 18 151/70 97 04/16/18 22:50 04/16/18 22:50 04/16/18 22:50 04/16/18 22:50 04/16/18 22:50 General appearance: Present: cooperative, A&O X 3, pleasant, no acute distress, answers questions appropriately Exam: hard of hearing, but answers questions appropriately. - Head Head exam: Present: normal inspection - Eye Eye exam: Present: EOMI, normal appearance - Respiratory Respiratory exam: Present: CTAB. Absent: chest wall tenderness, decreased breath sounds - Cardiovascular Cardiovascular exam: Present: RRR. Absent: diastolic murmur, systolic murmur - GI/Abdominal GI/Abdominal exam: Present: normal bowel sounds, soft. Absent: tenderness - Extremities Exam Extremities exam: Present: warm, radial pulses palpable and symmetrical. Absent : calf tenderness, pedal edema, tenderness - Neurological Exam Neurological exam: Present: no focal deficits, strengths equal and symetr throughout. Absent: motor sensory deficit, facial droop, speech deficit Additional comments: patient 4/5 strength in all extremities symmetrically - Skin Skin exam: Present: dry, normal color, warm Internal Med - H&P Results - Labs CBC & Chem 7: 04/17/18 04:31 04/17/18 04:31 - Assessment and plan (1) Near syncope Current Visit: Yes Status: Acute Assessment and plan: Patient was out in the park and had a near syncopal event. She did not fall, nor hit her head. She has generalized weakness on exam. Could be secondary to heat exposure, dehydration or orthostatic hypotension. cafeteria monitor PT/OT evaluation Orthostatic blood pressures. Consider further cardiac workup to assess for arrhythmia Hold blood pressure meds and sedation meds (tramadol) (2) Weakness Current Visit: Yes Status: Acute Assessment and plan: Patient has generalized weakness on exam. No focal deficits. PT/OT assessment today Holding blood pressure medications and pain meds as above (3) Sciatic leg pain Current Visit: Yes Status: Acute Assessment and plan: Chronic, holding tramadol home med (4) Hypertension Current Visit: No Status: Acute Assessment and plan: Continue to monitor, holding home meds. Qualifiers: Hypertension type: essential hypertension Qualified Code(s): I10 - Essential (primary) hypertension - Time Spent With Patient Total time spent is greater than 50% in coordination of care (as documented) at patient's floor/unit and/or counseling patient: Greater than 35 minutes
[2018-04-17] MEDS: Melatonin 3 MG TABLET PO PRN ×2 (00:52→23:13)
[2018-04-17 05:50] LABS: Hematocrit 34.2 % (35.3-44.9); Hemoglobin 11.7 g/dL (11.5-15.4); Mean Corpuscular HGB Conc 34.2 g/dL (31.6-35.5); Mean Corpuscular Hemoglobin 31.9 pg (28.0-33.3); Mean Corpuscular Volume 93.2 fL (83.0-100.0); Platelet Count 184 K/mcL (140-400); Red Blood Count 3.67 M/mcL (3.82-4.97); Red Cell Distribution Width 12.1 % (11.5-14.5)
[2018-04-17 06:08] LABS: BUN/Creatinine Ratio 26 (6-26); Blood Urea Nitrogen 17 mg/dL (8-23); Calcium 9.2 mg/dL (8.6-10.3); Carbon Dioxide 27 mEq/L (23-29); Chloride 106 mEq/L (98-107); Glucose 95 mg/dL (70-105); Osmolality,Calculated 291 (280-300); Potassium 3.7 mEq/L (3.5-5.1); Sodium 140 mEq/L (136-145); eGFR For Non-African Americans > 60 (> 60)
--- NOTE | 2018-04-17 11:12 | Internal Med Progress Note ---
Hospitalist Progress Note - Encounter Date of Encounter: 04/17/18 Time of Encounter: 11:15 - Subjective Interval History: Patient seen an examined at bedside denies any CP or SOB - Exam Vitals: Temp Pulse Resp BP Pulse Ox 98.3 F 71 15 145/66 97 04/17/18 10:29 04/17/18 10:29 04/17/18 10:29 04/17/18 10:29 04/17/18 10:29 Exam: General appearance: Present: cooperative, A&O X 3, pleasant, no acute distress, answers questions appropriately Exam: hard of hearing, but answers questions appropriately. - Head Head exam: Present: normal inspection - Eye Eye exam: Present: EOMI, normal appearance - Respiratory Respiratory exam: Present: CTAB. Absent: chest wall tenderness, decreased breath sounds - Cardiovascular Cardiovascular exam: Present: RRR. Absent: diastolic murmur, systolic murmur - GI/Abdominal GI/Abdominal exam: Present: normal bowel sounds, soft. Absent: tenderness - Extremities Exam Extremities exam: Present: warm, radial pulses palpable and symmetrical. Absent : calf tenderness, pedal edema, tenderness - Neurological Exam Neurological exam: Present: no focal deficits, strengths equal and symetr throughout. Absent: motor sensory deficit, facial droop, speech deficit - Assessment and Plan (1) Near syncope Current Visit: Yes Status: Acute Assessment and Plan: Patient had near syncopal event while changing position - she did not fall or strike her head. She denies any CP palpitation MORGAN or vision changes we will check echo PT/OT eval hold bp and pain meds cont cardiac monitoring CT of head to r/o CVA carotid dopplers (2) Sciatic leg pain Current Visit: Yes Status: Acute Assessment and Plan: chronic - hold tramadol (3) Weakness Current Visit: Yes Status: Acute Assessment and Plan: No focal weakness PT/OT eval fall precautions CT of head (4) DVT prophylaxis Current Visit: No Status: Acute Assessment and Plan: 1 lovenox (5) Hypertension Current Visit: No Status: Acute Assessment and Plan: 1 we will hold BP meds 2 orthostatic vs - Time Spent with Patient Total time spent is greater than 50% in coordination of care (as documented) at patient's floor/unit and/or counseling patient: Internal Medicine: Result - Labs CBC & Chem 7: 04/17/18 04:31 04/17/18 04:31 Labs: Short CBC 04/17/18 Range/Units 04:31 WBC 6.4 (4.3-11.1) K/mcL Hgb 11.7 (11.5-15.4) g/dL Hct 34.2 L (35.3-44.9) % Plt Count 184 (140-400) K/mcL BMP 04/17/18 04:31 Sodium 140 Potassium 3.7 Chloride 106 Carbon Dioxide 27 BUN 17 Creatinine 0.65 Glucose 95 Calcium 9.2 Consult Discharge Plan - Plan Referrals: Jim Barcenas MD [Primary Care Provider] - (5) Hypertension Qualifiers: Hypertension type: essential hypertension Qualified Code(s): I10 - Essential (primary) hypertension
[2018-04-17] MEDS ORDERED: amLODIPine 5 MG TABLET PO SCH (17:45)
[2018-04-17] MEDS: Acetaminophen 325 MG TABLET PO PRN (23:11)
[2018-04-18] MEDS: *HR* Enoxaparin 40 MG/0.4 ML SYRINGE SQ SCH (06:27)
[2018-04-18] MEDS ORDERED: 0.9 % Sodium Chloride 1,000 ML IVC SCH (12:15)
--- NOTE | 2018-04-18 19:11 | Internal Med Progress Note ---
Hospitalist Progress Note - Encounter Date of Encounter: 04/18/18 Time of Encounter: 12:00 - Subjective Interval History: Patient seen an examined at bedside. Repeat ortho VS this am - positive- we easton give IVF and recheck- updated who verbalized understanding Denies any pain or discomfort - Exam Vitals: Temp Pulse Resp BP Pulse Ox 97.6 F 84 16 168/74 98 04/18/18 18:34 04/18/18 18:34 04/18/18 18:34 04/18/18 18:34 04/18/18 18:34 Exam: General appearance: Present: cooperative, A&O X 3, pleasant, no acute distress, answers questions appropriately Exam: hard of hearing, but answers questions appropriately. - Head Head exam: Present: normal inspection - Eye Eye exam: Present: EOMI, normal appearance - Respiratory Respiratory exam: Present: CTAB. Absent: chest wall tenderness, decreased breath sounds - Cardiovascular Cardiovascular exam: Present: RRR. Absent: diastolic murmur, systolic murmur - GI/Abdominal GI/Abdominal exam: Present: normal bowel sounds, soft. Absent: tenderness - Extremities Exam Extremities exam: Present: warm, radial pulses palpable and symmetrical. Absent : calf tenderness, pedal edema, tenderness - Neurological Exam Neurological exam: Present: no focal deficits, strengths equal and symetr throughout. Absent: motor sensory deficit, facial droop, speech deficit - Assessment and Plan (1) Near syncope Current Visit: Yes Status: Acute Assessment and Plan: Patient had near syncopal event while changing position - she did not fall or strike her head. She denies any CP - palpitation MORGAN or vision changes we will check echo PT/OT eval hold bp and pain meds cont cardiac monitoring CT of head to r/o CVA carotid dopplers 04/18 suspect this rt orthostatic changes-she admits to poor oral intake of fluid because she does not want to urinate frequently orthostatic VS positive with patient lightheaded with position change echo LVEF 60%. Moderate left ventricular diastolic dysfunction. Normal right ventricular structure and function. Mild-moderate aortic regurgitation. Normal mitral valve structure and function. Trace tricuspid regurgitation. Mild pulmonary hypertension. 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 Recommendations: Risk Factor Modification, Medical Therapy, and Follow up exam [address] negative for any intracranial abnormalities We will hold BP meds give IVF overnight recehck in am SHYLA chavez (2) Sciatic leg pain Current Visit: Yes Status: Acute Assessment and Plan: chronic - hold tramadol (3) Weakness Current Visit: Yes Status: Acute Assessment and Plan: No focal weakness PT/OT eval fall precautions CT of head (4) DVT prophylaxis Current Visit: No Status: Acute Assessment and Plan: 1 lovenox (5) Hypertension Current Visit: No Status: Acute Assessment and Plan: 1 we will hold BP meds - BP stable 2 orthostatic vs - Time Spent with Patient Total time spent is greater than 50% in coordination of care (as documented) at patient's floor/unit and/or counseling patient: Internal Medicine: Result - Labs CBC & Chem 7: 04/17/18 04:31 04/17/18 04:31 Consult Discharge Plan - Plan Referrals: Jim Barcenas MD [Primary Care Provider] - 04/25/18 9:00 am (5) Hypertension Qualifiers: Hypertension type: essential hypertension Qualified Code(s): I10 - Essential (primary) hypertension
[2018-04-18] MEDS: Melatonin 3 MG TABLET PO PRN (20:42)
[2018-04-18] MEDS: Acetaminophen 325 MG TABLET PO PRN (21:35)
[2018-04-19 04:08] LABS: Basophils # 0.1 K/mcL (0.0-0.2); Basophils % 0.9 %; Eosinophils # 0.2 K/mcL (0.0-0.6); Eosinophils % 3.5 %; Hematocrit 34.1 % (35.3-44.9); Hemoglobin 11.8 g/dL (11.5-15.4); Immature Granulocytes % 0.6 % (0-4); Lymphocytes % 37.3 %; Mean Corpuscular HGB Conc 34.6 g/dL (31.6-35.5); Mean Corpuscular Hemoglobin 33.1 pg (28.0-33.3); Mean Corpuscular Volume 95.5 fL (83.0-100.0); Monocytes # 0.5 K/mcL (0.0-1.3); Neutrophils # 2.6 K/mcL (1.6-8.9); Platelet Count 188 K/mcL (140-400); Red Blood Count 3.57 M/mcL (3.82-4.97); Red Cell Distribution Width 11.9 % (11.5-14.5); Segmented Neutrophils % 47.7 %
[2018-04-19 04:27] LABS: BUN/Creatinine Ratio 26 (6-26); Blood Urea Nitrogen 18 mg/dL (8-23); Carbon Dioxide 26 mEq/L (23-29); Chloride 110 mEq/L (98-107); Glucose 99 mg/dL (70-105); Osmolality,Calculated 294 (280-300); Potassium 3.8 mEq/L (3.5-5.1); Sodium 141 mEq/L (136-145); eGFR For Non-African Americans > 60 (> 60)
[2018-04-19] MEDS: *HR* Enoxaparin 40 MG/0.4 ML SYRINGE SQ SCH (06:21)
[2018-04-19 11:16] VITALS: BP 162/74
--- NOTE | 2018-04-19 12:37 | Discharge Summary ---
- NOTES TO OUTPATIENT PROVIDER Notes to Outpatient Provider: syncope - dt orhtostatic changes held amlodipne decreased atenolol 12.5 mg. 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 Risk Factor Modification, Medical Therapy, and Follow up exam 12 months. On statin- prescription for 81 mg ASA Date of Encounter: 04/19/18 Time of Encounter: 12:25 - Discharge Diagnosis (1) Near syncope Priority: Primary Status: Acute (2) Sciatic leg pain Priority: Secondary Status: Acute (3) Weakness Priority: Secondary Status: Acute (4) Hypertension Priority: Secondary Status: Acute Qualifiers: Hypertension type: essential hypertension Qualified Code(s): I10 - Essential (primary) hypertension Hospital course: Ms. Beach is a 82 year old female past medical hx asthma HTN HLD was brought to the ED after she experienced an near syncopal episode during position change. EKG did show some mild bradycardia lab work unremarkable echo with EF of 60% moderate diastolic dysfunction mild- moderate aortic regurgitation head CT negative cartoid duplex with moderate 40-59% stenosis. Orthostatic VS were positive Patient admits that she does not drink adequate qmount of fluid s at home . She is on a large dose of Atenolol and on amlodipine BP meds held IVF given, no arrhythmias on monitor overnight repeat orthostatic VS improved We will hold amlodipine and reduce Atenolol down to 12.5 mg Advised patient to follow up with PCP since this provider knows her best and can adjust medications accordingly. Encouraged patient to drink more water. She verbalized understanding SHe is hemodynamically stable and ready for discharge - Time Spent with Patient Total time spent providing and/or coordinating discharge services: - Discharge Medications Prescriptions: Atenolol [Tenormin] 12.5 mg PO DAILY #30 tablet Home Medications: Acetaminophen [Tylenol 8 Hour] 650 mg PO Q8H PRN 04/16/18 [History] Albuterol Sulfate [Ventolin Hfa] 2 puff IH Q6H PRN 04/16/18 [History] Ascorbate Calcium [Vitamin C] 500 mg PO DAILY 04/16/18 [History] Biotin 1 mg PO DAILY 04/16/18 [History] Cholecalciferol (D-3) [Vitamin D] 1,000 unit PO DAILY 04/16/18 [History] Lovastatin [Mevacor] 20 mg PO HS 04/16/18 [History] Lutein 6 mg PO DAILY 04/16/18 [History] Pyridoxine HCl [Vitamin B-6] 100 mg PO DAILY 04/16/18 [History] Tramadol HCl [Ultram] 50 mg PO TID PRN 04/16/18 [History] Aspirin 81 mg PO DAILY #30 tab.chew 04/19/18 [Rx] Atenolol [Tenormin] 12.5 mg PO DAILY #30 tablet 04/19/18 [Rx] Allergies/Adverse Reactions: 3 Allergy/AdvReac Type Severity Reaction Status Date / Time No Known Allergies Allergy Verified 04/16/18 18:49 Date of admission: 04/16/18 18:10 Primary care physician: Jim Barcenas MD Consults: 04/16/18 23:11 Consult to Physical Therapy [CONS] Routine Comment: Evaluate, develop and implement POC Reason for Consult: Weakness, syncope Does patient have active BEDREST order?: No Is patient medically & hemodynamically stable?: Yes - Constitutional Vitals: Temp Pulse Resp BP Pulse Ox 98.8 F 78 16 162/74 97 04/19/18 11:15 04/19/18 11:15 04/19/18 11:15 04/19/18 11:15 04/19/18 11:15 General appearance: Present: cooperative, A&O X 3, pleasant, no acute distress, answers questions appropriately Exam: see above - Head Head exam: Present: atraumatic, normocephalic - Eye Eye exam: Present: PERRL, conjuntiva pink, sclera anicteric Pupils: Present: PERRL - Neck Neck exam general surgery: Present: supple, trachea midline. Absent: lymphadenopathy - Respiratory Respiratory exam: Present: CTAB. Absent: accessory muscle use, rales, rhonchi, wheezes - Cardiovascular Cardiovascular exam: Present: RRR, +S1, +S2. Absent: diastolic murmur, gallop, rubs, systolic murmur - GI/Abdominal GI/Abdominal exam: Present: normal bowel sounds, soft, no peritoneal signs. Absent: distended, tenderness - Extremities Exam Extremities exam: Present: warm, radial pulses palpable and symmetrical. Absent : calf tenderness, cyanotic, pedal edema - Neurological Exam Neurological exam: Present: CN II-XII intact, oriented X3, no focal deficits. Absent: pronater drift, facial droop, speech deficit - Skin Skin exam: Present: dry, intact - Patient Status Disposition: Home, Self-Care Condition: Good Functional capacity at discharge: independent ambulation Overall status at discharge: patient is back to baseline - Discharge Instructions Follow Up With: Jim Barcenas MD [Primary Care Provider] - 04/25/18 9:00 am - Diet and Activity Activity: resume usual activities as tolerated Diet: advance to your usual diet
--- NOTE | 2018-04-21 15:46 | Electrocardiograph Report ---
[address] [address] Test Date: 2018-04-16 Pat Name: Mariaelena Beahc Department: EXAM1 Room: 3B Gender: F [employer] Intern: : 1935 Requested By: Cornel Robledo Order Number: [id number] Reading MD: Kamran Medina Measurements Intervals [place] Rate: 58 P: 70 CA: 166 QRS: 7 QRSD: 95 T: 30 QT: 456 QTc: 448 Interpretive Statements Sinus rhythm Probable left atrial enlargement Electronically Signed On 04-21-2018 15:45:32 EDT by Kamran Medina
--- NOTE | 2018-04-22 12:14 | Electrocardiograph Report ---
[address] [address] Test Date: 2018-04-18 Pat Name: Mariaelena Beach Department: [id number] Room: 3B Gender: F [employer]: : 1935 Requested By: Kenia Bledsoe Order Number: [id number] Reading MD: Kamran Medina Measurements Intervals [place] Rate: 79 P: 71 MO: 157 QRS: 2 QRSD: 88 T: 48 QT: 384 QTc: 418 Interpretive Statements SINUS RHYTHM Electronically Signed On 04-22-2018 12:12:26 EDT by Kamran Medina
== END 2018-04-19 14:05 | disposition home or self-care (01) ==
LOC: EMEROOARM 16:33 → 3BNU 16:33
PROVIDERS: ADMIT Student in an Organized Health Care Education/Training Program; ATTEND Student in an Organized Health Care Education/Training Program